=== PATIENT | female | born 1995 | race Caucasian/White ===

== ENCOUNTER 2022-04-17 10:29 | Day surgery (SDC) | payer BC ==
[2022-04-17] MEDS ORDERED: hydrALAZINE 20 MG/ML VIAL SLOW IVP PRN (11:04)
[2022-04-17 11:09] VITALS: BMI 28.1
[2022-04-17 11:34] LABS: Fetal Membranes Rupture No Membranes Rupture (No Rupture)
== END 2022-04-17 11:46 | disposition home or self-care (01) ==
LOC: CSHLD/OP 10:29
PROVIDERS: ATTEND Obstetrics & Gynecology
DX: Z03.71 Encounter for suspected problem with amniotic cavity and membrane ruled out (principal); Z3A.37 37 weeks gestation of pregnancy
CPT/HCPCS: 84112; 99284

== ENCOUNTER 2022-04-24 09:11 | Outpatient (CLI) | payer BC ==
[2022-04-24 09:57] LABS: SARS-CoV-2 NAA Rapid Test Not Detected (NotDetected)
== END 2022-04-24 09:12 | disposition home or self-care (01) ==
LOC: CSHLAB 09:11
PROVIDERS: ATTEND Obstetrics & Gynecology
DX: Z20.822 Contact with and (suspected) exposure to COVID-19 (principal)
CPT/HCPCS: U0002

== ENCOUNTER 2022-04-25 19:00 | Inpatient (IN) | payer BC ==
[2022-04-26] MEDS ORDERED: Terbutaline Sulfate 1 MG/ML VIAL ONE (08:00)
[2022-04-26] MEDS ORDERED: Bupivacaine 0.25% HCL 30 ML VIAL ONE (08:00)
[2022-04-26] MEDS ORDERED: Acetaminophen 500 MG TAB PO PRN (11:24)
[2022-04-26] MEDS ORDERED: Misoprostol 100 MCG TAB VAG SCH (11:24)
[2022-04-26] MEDS ORDERED: Ibuprofen 800 MG TAB PO PRN (11:24)
[2022-04-26] MEDS ORDERED: Docusate 100 MG CAP PO PRN (11:24)
[2022-04-26] MEDS ORDERED: Ondansetron PF 4 MG/2 ML Vial IVP PRN ×3 (11:24→21:33)
[2022-04-26] MEDS ORDERED: Lidocaine 1% (PF) 30 ML VIAL SC PRN (11:24)
[2022-04-26] MEDS ORDERED: hydrALAZINE 20 MG/ML VIAL SLOW IVP PRN ×2 (11:24→21:33)
[2022-04-26] MEDS ORDERED: Lactated Ringer's 1,000 ML IV SCH (11:24)
[2022-04-26] MEDS ORDERED: Diphenoxylate HCl/Atropine Tablet PO PRN ×2 (11:24)
[2022-04-26] MEDS ORDERED: Misoprostol 200 MCG TAB PR PRN (11:24)
[2022-04-26] MEDS ORDERED: Butorphanol Tartrate 1 MG/ML VIAL SLOW IVP PRN (11:24)
[2022-04-26] MEDS ORDERED: Promethazine HCl 25 MG/ML VIAL IM PRN ×2 (11:24→14:26)
[2022-04-26] MEDS ORDERED: Zolpidem Tartrate 5 MG TAB PO PRN ×2 (11:24→21:33)
[2022-04-26] MEDS ORDERED: HYDROcodone/Acetaminophen 5/325 mg Tablet PO PRN ×3 (11:24→21:33)
[2022-04-26] MEDS ORDERED: NS w/ Oxytocin 30 units 500 ML IV SCH ×3 (11:24→21:45)
[2022-04-26] MEDS ORDERED: Penicillin G Potassium 5 MILL.UNITS VIAL ONE (11:25)
[2022-04-26] MEDS ORDERED: Penicillin G Potassium 5 MILL.UNITS in Sodium Chloride 0.9% 100 ML IVPB SCH (11:30)
[2022-04-26 11:38] LABS: Hemoglobin 11.4 g/dL (12.0-15.5); Mean Corpuscular HGB CONC 32.9 g/dL (32.0-36.0); Mean Corpuscular Hemoglobin 28.1 pg (27.0-33.0); Mean Corpuscular Volume 85.7 fl (81.6-98.3); Mean Platelet Volume 10.6 fl (7.4-10.4); Platelet Count 234 10x3/uL (150-450); RBC Distribution Width 12.9 % (11.5-14.5); Red Blood Cell (RBC) Count 4.05 10x6/uL (3.90-5.03); White Blood Cell (WBC) Count 6.7 10x3/uL (3.5-10.5)
[2022-04-26 12:13] LABS: HIV (1/2) Antibody/Antigen Non-Reactive (NonReactive); HIV 1/2 INDEX 0.13 S/CO (<1.00); Hep B Surf Ag Non-Reactive S/CO (NonReactive)
[2022-04-26 12:14] VITALS: BMI 27.8
[2022-04-26 12:14] LABS: Syphilis Antibody Nonreactive (Nonreactive); Syphilis Antibody Index 0.03 S/CO (<1.00 Non-Reactive)
[2022-04-26 12:29] LABS: SARS-CoV-2 NAA Rapid Test Not Detected (NotDetected)
[2022-04-26] MEDS ORDERED: Fentanyl 2 mcg/Bup 0.1% Cadd 100 ML ONE (13:59)
[2022-04-26] MEDS ORDERED: Acetaminophen 325 MG TAB PO PRN (14:26)
[2022-04-26] MEDS ORDERED: ePHEDrine Sulfate 50 MG/10 ML VIAL SLOW IVP PRN (14:26)
[2022-04-26] MEDS ORDERED: Moisturizing Cream (Eucerin) 113 GM JAR TOP PRN (14:26)
[2022-04-26] MEDS ORDERED: Naloxone HCl 0.4 mg/ml Vial IVP PRN ×2 (14:26)
[2022-04-26] MEDS ORDERED: Lactated Ringer's 500 ML IV PRN (14:26)
[2022-04-26] MEDS ORDERED: diphenhydrAMINE 50 MG/ML VIAL IVP PRN (14:26)
[2022-04-26] MEDS ORDERED: Communication Order-Pharmacy FS SCH (14:30)
[2022-04-26] MEDS ORDERED: Fentanyl 2 mcg/Bupivacaine 0.1% Cassette 100 ML EPIDURAL SCH (14:30)
[2022-04-26] MEDS: Penicillin G 2.5 MILL.units 2.5 MILL.UNITS in Premix Bag 1 BAG IVPB SCH ×2 (15:16→19:19)
[2022-04-26] MEDS ORDERED: Benzocaine-Menthol 82.5 ML CAN TOP PRN (21:33)
[2022-04-26] MEDS ORDERED: Milk Of Magnesia 30 ML UDCUP PO PRN (21:33)
[2022-04-26] MEDS ORDERED: Boostrix 0.5 ML (Tdap) VIAL (>/=7 yrs of age) IM ONE (21:33)
[2022-04-26] MEDS ORDERED: Misoprostol 200 MCG TAB VAG PRN (21:33)
[2022-04-26] MEDS ORDERED: Preparation H Ointment 28 GM TUBE PR PRN (21:33)
[2022-04-26] MEDS ORDERED: Bisacodyl 10 MG SUPP PR PRN (21:33)
[2022-04-26] MEDS ORDERED: Lanolin Ointment 7 GM TUBE TOP PRN (21:33)
[2022-04-26] MEDS ORDERED: diphenhydrAMINE 25 MG CAP PO PRN (21:33)
[2022-04-26] MEDS ORDERED: Witch Hazel-Glycerin 1 EACH JAR TOP PRN (21:35)
[2022-04-27] MEDS: Penicillin G 2.5 MILL.units 2.5 MILL.UNITS in Premix Bag 1 BAG IVPB SCH (01:36)
[2022-04-27] MEDS: Ibuprofen 800 MG TAB PO SCH ×4 (01:36→21:48)
[2022-04-27 05:19] LABS: Hemoglobin 9.9 g/dL (12.0-15.5); Mean Corpuscular HGB CONC 32.4 g/dL (32.0-36.0); Mean Corpuscular Hemoglobin 27.7 pg (27.0-33.0); Mean Corpuscular Volume 85.7 fl (81.6-98.3); Mean Platelet Volume 10.6 fl (7.4-10.4); Platelet Count 200 10x3/uL (150-450); RBC Distribution Width 12.9 % (11.5-14.5); Red Blood Cell (RBC) Count 3.57 10x6/uL (3.90-5.03); White Blood Cell (WBC) Count 10.9 10x3/uL (3.5-10.5)
[2022-04-27] MEDS: Prenatal Vitamin 1 TAB PO SCH (08:55)
[2022-04-27] MEDS: Docusate 100 MG CAP PO SCH ×2 (08:55→21:49)
[2022-04-27] MEDS: Ferrous Sulfate 325 MG TAB PO SCH ×2 (08:55→16:37)
[2022-04-27] MEDS: HYDROcodone/Acetaminophen 5/325 mg Tablet PO PRN ×2 (09:55→16:37)
[2022-04-28] MEDS: Ibuprofen 800 MG TAB PO SCH (05:35)
[2022-04-28 08:52] VITALS: BP 119/72; TEMP 98
[2022-04-28] MEDS: Ferrous Sulfate 325 MG TAB PO SCH (09:33)
[2022-04-28] MEDS: Prenatal Vitamin 1 TAB PO SCH (09:33)
[2022-04-28] MEDS: Docusate 100 MG CAP PO SCH (09:33)
== END 2022-04-28 12:25 | disposition home or self-care (01) | DRG 807 ==
LOC: CSHLD 04-26 10:59 → CSHPP 04-27 00:30
PROVIDERS: ADMIT Obstetrics & Gynecology; ATTEND Obstetrics & Gynecology
PROC: 10D07Z6 Extraction of Products of Conception, Vacuum, Via Natural or Artificial Opening (ICD-10-PCS; principal; 2022-04-26)
PROC: 0W8NXZZ Division of Female Perineum, External Approach (ICD-10-PCS; 2022-04-26)
PROC: 10907ZC Drainage of Amniotic Fluid, Therapeutic from Products of Conception, Via Natural or Artificial Opening (ICD-10-PCS; 2022-04-26)
PROC: 3E033VJ Introduction of Other Hormone into Peripheral Vein, Percutaneous Approach (ICD-10-PCS; 2022-04-26)
DX: O99.824 Streptococcus B carrier state complicating childbirth (principal); Z37.0 Single live birth; Z20.822 Contact with and (suspected) exposure to COVID-19; Z3A.39 39 weeks gestation of pregnancy; O99.02 Anemia complicating childbirth; D64.9 Anemia, unspecified; O32.8XX0 Maternal care for other malpresentation of fetus, not applicable or unspecified; O70.1 Second degree perineal laceration during delivery; O76 Abnormality in fetal heart rate and rhythm complicating labor and delivery
CPT/HCPCS: 36415; 51702; 85027; 86780; 86850; 86900; 86901; 87340; 87389; J2540; J2590; J3105; J3490; S0020; U0002